=== PATIENT | female | born 1950 | race Caucasian/White ===

== ENCOUNTER 2023-07-23 11:50 | Emergency (ER) | payer MEDICARE, SELFPAY ==
[2023-07-23 11:56] VITALS: BP 122/70; PULSE 95; RESP 20; TEMP 36.9; O2SAT 99; BMI 24.7
--- NOTE | 2023-07-23 12:02 | DI.RAD.S_ITS ---
PROCEDURE: XR CHEST 1V INDICATIONS: fall/pain TECHNIQUE: One view of the chest was acquired. COMPARISON: None. FINDINGS: Surgical changes and devices: Left-sided port a catheter, the tip of which is directed medially. Cervical and lumbar fusion hardware. Lungs and pleura: Lungs are clear. No pleural effusions or pneumothorax. Mediastinum: Mediastinal contours appear normal. Heart size is normal. Bones and chest wall: No suspicious bony lesions. Overlying soft tissues appear unremarkable. IMPRESSION: 1. No acute process. 2. Medial deviation of the tip of the port catheter which may be within the azygos vein. Dictated by: Adelfo Valencia M.D. on 07/23/2023 at 12:25 Approved by: Adelfo Valencia M.D. on 07/23/2023 at 12:26
--- NOTE | 2023-07-23 12:02 | DI.RAD.S_ITS ---
PROCEDURE: XR WRIST RT MIN 3V INDICATIONS: fall/pain TECHNIQUE: 4 views of the wrist were acquired. COMPARISON: None. FINDINGS: Bones: No fractures or dislocations. No suspicious bony lesions. Periarticular osteophyte formation at the scaphoid trapezial and 1st carpometacarpal joints, as well as the radiocarpal joint. Soft tissues: No suspicious soft tissue calcifications. IMPRESSION: 1. Osteoarthritis. 2. No acute fracture. No osseous lesion. If symptoms and/or clinical suspicion for pathology persist, further assessment with repeat, or advanced imaging (e.g., CT, MRI, or bone scan) may be helpful for further assessment. Dictated by: Adelfo Valencia M.D. on 07/23/2023 at 12:26 Approved by: Adelfo Valencia M.D. on 07/23/2023 at 12:27
--- NOTE | 2023-07-23 14:45 | ED_ITS ---
HPI - Fall <Olivia Davis PA-C - Last Filed: 07/23/23 14:53> General Chief Complaint: Fall Stated Complaint: Fall T-1 poss R/hand is broke/ hit chest on corner Time Seen by Provider: 07/23/23 13:00 Source: patient Mode of arrival: Ambulatory History of Present Illness HPI Narrative: Patient is a 73-year-old female who presents after a fall yesterday in which she injured her right wrist and chest. She fell against a coffee table. She did not hit her head during the fall and did not lose consciousness. She does not take any blood thinners. She does have a implanted port as she has difficult IV access. She is visiting here from her home [facility]. She has tried applying ice and took the hydrocodone she has a part of a pain contract for the discomfort she was feeling overnight but when she woke this morning her right wrist was very swollen and tender and her sternum is tender to palpation. She denies any difficulty breathing or pain with inspiration. Related Data Allergies Allergy/AdvReac Type Severity Reaction Status Date / Time iodine Allergy Vomiting Verified 07/23/23 11:56 Review of Systems <Olivia Davis PA-C - Last Filed: 07/23/23 14:53> Review of Systems ROS Unobtainable: All systems reviewed & are unremarkable except as noted in HPI and below Patient History <Olivia Davis PA-C - Last Filed: 07/23/23 14:53> Social History Smoking Status: Never smoker Smoking Status: Never smoker Substance Use Type: does not use Exam <Olivia Davis PA-C - Last Filed: 07/23/23 14:53> Narrative Exam Narrative: GENERAL: 73 year old patient appears stated age. Well-developed patient, in no distress. NEURO: AOx3. HEAD: Atraumatic. Normocephalic. EYES: Pupils equal round and reactive. Extraocular motions intact. No scleral icterus. No injection or drainage. ENT: Nose without bleeding or purulent drainage. Airway patent. RESPIRATORY: No distress. Patient has mid sternal chest wall tenderness to palpation. There is no ecchymosis or hematoma over this area. EXTREMITIES: Right wrist with marked edema, no visible deformity, no ecchymosis. Neurovascular exam is intact distal to the wrist. Patient is able to range the wrist in flexion extension with discomfort. SKIN: No rash or erythema of visible areas Initial Vital Signs Initial Vital Signs: Vital Signs Temperature 98.5 F 07/23/23 11:56 Pulse Rate 95 H 07/23/23 11:56 Respiratory Rate 20 07/23/23 11:56 Blood Pressure 122/70 07/23/23 11:56 Pulse Oximetry 99 07/23/23 11:56 Oxygen Delivery Method Room Air 07/23/23 11:56 <Janessa Booth DO - Last Filed: 07/24/23 07:46> Initial Vital Signs Initial Vital Signs: Vital Signs Temperature 98.5 F 07/23/23 11:56 Pulse Rate 95 H 07/23/23 11:56 Respiratory Rate 20 07/23/23 11:56 Blood Pressure 122/70 07/23/23 11:56 Pulse Oximetry 99 07/23/23 11:56 Oxygen Delivery Method Room Air 07/23/23 11:56 Course <Olivia Davis PA-C - Last Filed: 07/23/23 14:53> Orders Ordered: ED Orders 07/23/23 12:02 Chest [XR chest 1V] Stat XR wrist RT min 3V Stat Vital Signs Vital signs: Vital Signs - 8 hr 07/23/23 11:56 Temperature 98.5 F Pulse Rate 95 H Respiratory Rate 20 Blood Pressure 122/70 Pulse Oximetry 99 Oxygen Delivery Method Room Air <Janessa Booth DO - Last Filed: 07/24/23 07:46> Orders Ordered: ED Orders 07/23/23 12:02 Chest [XR chest 1V] Stat XR wrist RT min 3V Stat Vital Signs Vital signs: Vital Signs - 8 hr 07/23/23 11:56 Temperature 98.5 F Pulse Rate 95 H Respiratory Rate 20 Blood Pressure 122/70 Pulse Oximetry 99 Oxygen Delivery Method Room Air MDM - Fall <RILEY Rodríguez Last Filed: 07/23/23 14:53> Imaging Data Extremity x-ray #1: Radiologist's Impression: PROCEDURE: XR WRIST RT MIN 3V INDICATIONS: fall/pain TECHNIQUE: 4 views of the wrist were acquired. COMPARISON: None. FINDINGS: Bones: No fractures or dislocations. No suspicious bony lesions. Periarticular osteophyte formation at the scaphoid trapezial and 1st carpometacarpal joints, as well as the radiocarpal joint. Soft tissues: No suspicious soft tissue calcifications. IMPRESSION: 1. Osteoarthritis. 2. No acute fracture. No osseous lesion. If symptoms and/or clinical suspicion for pathology persist, further assessment with repeat, or advanced imaging (e.g., CT, MRI, or bone scan) may be helpful for further assessment. Dictated by: Adelfo Valencia M.D. on 07/23/2023 at 12:26 Approved by: Adelfo Valencia M.D. on 07/23/2023 at 12:27 Chest x-ray: Radiologist's Impression: PROCEDURE: XR CHEST 1V INDICATIONS: fall/pain TECHNIQUE: One view of the chest was acquired. COMPARISON: None. FINDINGS: Surgical changes and devices: Left-sided port a catheter, the tip of which is directed medially. Cervical and lumbar fusion hardware. Lungs and pleura: Lungs are clear. No pleural effusions or pneumothorax. Mediastinum: Mediastinal contours appear normal. Heart size is normal. Bones and chest wall: No suspicious bony lesions. Overlying soft tissues appear unremarkable. IMPRESSION: 1. No acute process. 2. Medial deviation of the tip of the port catheter which may be within the a zygos vein. Dictated by: Adelfo Valencia M.D. on 07/23/2023 at 12:25 Approved by: Adelfo Valencia M.D. on 07/23/2023 at 12:26 [facility] Narrative Medical decision making narrative: Multiple etiologies for patient's symptoms considered including, but not limited to: Fracture, sprain, strain, hematoma X-ray of wrist without evidence of bony fracture, does note osteoarthritic changes. X-ray of chest without evidence of bony fracture, notes port catheter tip with medial deviation. We do not have the records for this patient so unclear if this is a normal position for her catheter or if this is abnormal. Discussed this with the patient advised her to follow up with her primary care for reassessment of the port before using it again. Discussed supportive care of her wrist sprain and chest tenderness to include Tylenol (she does not take NSAIDs), hydrocodone that she has prescribed, ice/heat. Provided splint for support of her wrist. Patient's symptoms improved over duration of stay with above-stated therapies. Findings and discharge diagnosis discussed with patient/family followed by verbalization of understanding Return precautions discussed with patient/family whom verbalize understanding of diagnosis and plan Discharge Plan Departure Patient Disposition: Home Clinical Impression: Sternum pain Right wrist sprain Qualifiers: Encounter type: initial encounter Qualified Code(s): S63.501A - Unspecified sprain of right wrist, initial encounter Instructions: How To Perform RICE (Rest, Ice, Compress, Elevate), How to Prevent Falls Activity Restrictions/Additional Instructions: *You have been diagnosed with sprain of the right wrist and a bruise to your sternum. So sorry you're having this pain! Luckily, there are no fractures on the x-rays of your chest and wrist. As we discussed, your port catheter does appear to be in a slightly unusual position; I would check with your primary care back home and repeat the x-ray before you use the port. There is nothing emergent that needs to be done today. You have been diagnosed with a musculoskeletal injury. You are advised to use R: rest. take it easy and listen to your body! I: ice. apply ice for 20 minutes every 2 hours while awake. Do not put ice directly on the skin. C: compression. Gentle compression with koki wrap or splint will decrease pain and swelling. E: elevation. Keep extremity elevated above the heart whenever possible. You can use Tylenol for pain as well as the hydrocodone you have under your pain contract. *What to do: *Please continue to take your regular medications as directed. [ ] New medication prescriptions sent to your pharmacy: [ ] [ ] New medication written as a paper prescription [x] No new medications given *Please follow up with your primary care provider in 2-3 days, call for an appointment. Let them know you were seen in the Emergency Department and that we ask that you be seen in follow up. We will electronically transmit a record of today's note if your PCP is in our system *If you do not have a primary care provider please contact the [facility] Resource line at [phone]. They will ask some questions about your medical history and help get you set up with a doctor in the community. *Return to Emergency Department if you should have any new, worsening or concerning symptoms, such as [fever greater than 101 F, shaking chills, worsening pain, persistent vomiting or other concerning symptoms]. Referrals: Miscellaneous,Doctor, MD [Primary Care Provider] - Stand Alone Forms: Patient Portal/API ED Sign-out <Janessa Booth DO - Last Filed: 07/24/23 07:46> Cosign ED Attending Shabbir Attestation: I was available for consultation.
== END 2023-07-23 13:21 | disposition home or self-care (01) ==
PROVIDERS: Emergency Provider Physician Assistant
DX: S63.501A Unspecified sprain of right wrist, initial encounter (principal); R07.89 Other chest pain; W01.190A Fall on same level from slipping, tripping and stumbling with subsequent striking against furniture, initial encounter
CPT/HCPCS: 71045; 73110; 99283